=== PATIENT | male | born 1985 | race African-American/Black ===

== ENCOUNTER 2020-05-24 16:55 | Emergency (ER) | payer OTHER ==
[~2020-05-24] VITALS: Ht 172.7 cm; Wt 90.7 kg
[~2020-05-24 16:55] MED LIST: ALDACTONE25 MG PO; ASPIR 8181 MG PO; AUGMENTIN 875875 MG PO; CARVEDILOL6.25 MG PO; CEFTIN 250 MG250 MG PO; COLACE100 MG PO; IBUPROFEN 600600 M1 PO; LASIX 80 MG TAB80 MG PO; MUCINEX TA600 MG/TA1 PO; NOHOMEMEDICATIONS; NORCO 5-325 TA1 EACH PO; POTASSIUM20 PO; PRINIVIL10 MG PO; TYLENOL325 MG PO
[2020-05-24 21:06] LABS: EOSINOPHILS 9.7 % (0.0-3.0); HEMATOCRIT 43.1 % (42.0-52.0); HEMOGLOBIN 13.6 gm/dL (14.0-18.0); LYMPHOCYTES 23.3 % (24.0-44.0); MCH 27.8 pg (26.0-34.0); MCHC 31.6 g/dL (28.0-37.0); MONOCYTES 9.5 % (1.0-8.0); PLATELET COUNT 255 thou/uL (150-400); POLYS 56.5 % (36.0-66.0); RDW 17.6 % (10.5-14.5); WBC 8.9 thou/uL (4.0-11.0)
[2020-05-24 21:07] LABS: ANION GAP 13 mmol/L (7-16); BUN 12 mg/dL (7-18); CALCIUM 8.7 mg/dL (8.5-10.1); CHLORIDE 106 mmol/L (98-107); CO2 24 mmol/L (21-32); GLUCOSE 111 mg/dL (74-106); POTASSIUM 4.6 mmol/L (3.5-5.1); SODIUM 143 mmol/L (136-145)
[2020-05-24 21:16] LABS: TROPONIN-I <0.06 ng/mL (<0.06)
[2020-05-24 23:50] VITALS: BP 122/90
--- NOTE | 2020-05-25 07:23 | EKG ---
[facility] [address] [place] [address] ELECTROCARDIOGRAM REPORT Name: ERICA BOLDEN Room #: [facility] TANIYA [place]#: [id number] Admission: 05/24/20 Attend Phys: Discharge: 05/24/20 Date of : 81 Report #: [id number] <ELECTRONICALLY SIGNED> By: Alber Burkett MD, FACC 05/25/20 07 56 56 Alber Burkett MD, FACC /EPI
== END 2020-05-24 23:52 | disposition home or self-care (01) ==
LOC: ER 16:55
PROVIDERS: Emergency Medicine
DX: R60.0 Localized edema (principal); I50.9 Heart failure, unspecified; R06.02 Shortness of breath; F17.210 Nicotine dependence, cigarettes, uncomplicated; Z79.2 Long term (current) use of antibiotics; Z79.899 Other long term (current) drug therapy